=== PATIENT | male | born 1955 | race Caucasian/White ===

== ENCOUNTER 2017-07-05 12:44 | Outpatient (CLI) | payer BC, OTHER ==
--- NOTE | 2017-07-05 13:37 | RAD ---
FRONTAL AND LATERAL IMAGING OF CHEST: 07/05/2017 HISTORY: Dyspnea. COMPARISON: 09/01/2015 FINDINGS: The bilateral hemidiaphragms are elevated with shallow inspiration, stable. The heart and mediastina l contours are stable. No lobar consolidation or alveolar edema. IMPRESSION: Shallow inspiration with elevated bilateral hemidiaphragms, unchanged. No acute findings. POS: LUKAS
== END 2017-07-05 12:45 | disposition home or self-care (01) ==
LOC: RAD 12:44
PROVIDERS: ATTEND Internal Medicine Pulmonary Disease
DX: R06.00 Dyspnea, unspecified (principal); J98.6 Disorders of diaphragm
CPT/HCPCS: 71046

== ENCOUNTER 2018-05-30 09:57 | Outpatient (CLI) | payer OTHER ==
--- NOTE | 2018-05-30 11:05 | RAD ---
CHEST PA AND LATERAL: History: 62-year-old male R09.89, bronchi. Not feeling well. Cough. Congestion, and fever for the past week. FINDINGS: Inspiration is somewhat less than optimal. There is some alveolar parenchymal changes in the superior segment of the right lower lobe, evidence for pneumonia. Heart size is normal. No significant pleura l effusion. There is some elevation of both hemidiaphragms. IMPRESSION: Evidence for superior segment right lower lobe pneumonia. Treatment and follow up to complete clearin g over several weeks is suggested. POS: LUKAS
== END 2018-05-30 09:58 | disposition home or self-care (01) ==
LOC: SCSRAD 09:57
PROVIDERS: ATTEND Nurse Practitioner Family
DX: R09.89 Other specified symptoms and signs involving the circulatory and respiratory systems (principal); J18.9 Pneumonia, unspecified organism
CPT/HCPCS: 71046

== ENCOUNTER 2018-06-14 09:24 | Outpatient (CLI) | payer OTHER ==
--- NOTE | 2018-06-14 11:03 | RAD ---
CHEST PA AND LATERAL: HISTORY: Right-sided pneumonia. COMPARISON: 05/30/2018 FINDINGS: The heart size is normal. There has been interval resolution of the right-sided pneumonia since the previous study. No focal areas of consolidation, pneumothoraces, or pleural effusions are seen. IMPRESSION: No acute process. POS: OFF
== END 2018-06-14 09:25 | disposition home or self-care (01) ==
LOC: SCSRAD 09:24
PROVIDERS: ATTEND Nurse Practitioner Family
DX: J18.1 Lobar pneumonia, unspecified organism (principal)
CPT/HCPCS: 71046

== ENCOUNTER 2018-10-03 12:55 | Outpatient (CLI) | payer OTHER ==
--- NOTE | 2018-10-03 13:19 | RAD ---
Exam: Chest 2 views HISTORY: Dyspnea Comparison 07/05/2017, 06/14/2018 FINDINGS: Normal cardiac silhouette. Pulmonary vessels and hilum are normal. Costophrenic angles are clear. Diminished lung volumes, likely due to a poor inspiratory effort. Lung volumes unchanged. No pneumothorax or osseous abnormalities. IMPRESSION: No acute cardiopulmonary process. No significant change
== END 2018-10-03 12:56 | disposition home or self-care (01) ==
LOC: RAD 12:55
PROVIDERS: ATTEND Internal Medicine Pulmonary Disease
DX: R06.00 Dyspnea, unspecified (principal)
CPT/HCPCS: 71046

== ENCOUNTER 2022-07-20 08:37 | Outpatient (CLI) | payer BC | END 2022-07-20 08:38 | disposition home or self-care (01) | LOC: NM 08:37 | PROVIDERS: ATTEND Psychiatry & Neurology Neurology | DX: R25.9 Unspecified abnormal involuntary movements (principal) | CPT/HCPCS: 78803; A9584 ==

== ENCOUNTER 2023-01-19 12:44 | Outpatient (CLI) | payer OTHER | END 2023-01-19 12:45 | disposition home or self-care (01) | LOC: BICMRI 12:44 | PROVIDERS: ATTEND Surgery | DX: M50.30 Other cervical disc degeneration, unspecified cervical region (principal); M48.02 Spinal stenosis, cervical region; M47.812 Spondylosis without myelopathy or radiculopathy, cervical region; M47.814 Spondylosis without myelopathy or radiculopathy, thoracic region | CPT/HCPCS: 72125; 72146 ==

== ENCOUNTER → 2023-02-18 | Day surgery (SDC) | payer BC ==
[2023-02-18 11:50] LABS: CSF Source CSF; Clarity Clear (Clear); Tube # 4
[2023-02-18 12:16] LABS: CSF, Glucose 74 mg/dl (40-70); CSF, Protein 41 mg/dL (15-40)
== END ==
LOC: RAD 08:14
PROVIDERS: ATTEND Surgery
PROC: 00JU0ZZ Inspection of Spinal Canal, Open Approach (ICD-10-PCS; principal; 2023-02-18)
DX: G93.89 Other specified disorders of brain (principal); R26.89 Other abnormalities of gait and mobility; R26.9 Unspecified abnormalities of gait and mobility
CPT/HCPCS: 62270; 82945; 84157; 87070; 87205; 89051

== ENCOUNTER 2023-04-14 10:19 | Outpatient (CLI) | payer BC ==
[2023-04-14 12:15] LABS: Hematocrit 46.7 % (38.8-50.0); Hemoglobin 15.2 g/dL (13.5-17.5); Mean Corpuscular HGB CONC 32.5 g/dL (32.0-36.0); Mean Corpuscular Hemoglobin 30.6 pg (27.0-33.0); Mean Platelet Volume 10.5 fl (7.4-10.4); Platelet Count 263 10x3/uL (150-450); RBC Distribution Width 13.7 % (11.5-14.5); Red Blood Cell (RBC) Count 4.97 10x6/uL (4.32-5.72); White Blood Cell (WBC) Count 7.4 10x3/uL (3.5-10.5)
[2023-04-14 12:33] LABS: PTT 29.6 sec (22.0-33.0); Prothrombin Time 10.7 sec (9.5-12.1)
[2023-04-14 12:34] LABS: Anion Gap 15 mmol/L (10-20); BUN (Urea Nitrogen) 13 mg/dL (8.4-25.7); Calc. Creatinine Clearance 0 mL/min (70-130); Calcium 9.6 mg/dL (7.8-10.44); Carbon Dioxide 25 mmol/L (23-31); Chloride 105 mmol/L (98-107); Estimated GFR 81; Glucose 103 mg/dL (80-115); Potassium 4.9 mmol/L (3.5-5.1); Sodium 140 mmol/L (136-145)
== END 2023-04-14 10:20 | disposition home or self-care (01) ==
LOC: LABBT 10:19
PROVIDERS: ATTEND Surgery
DX: Z01.818 Encounter for other preprocedural examination (principal); G91.2 (Idiopathic) normal pressure hydrocephalus
CPT/HCPCS: 80048; 85027; 85610; 85730; 93005; 93010

== ENCOUNTER 2023-04-14 11:00 | Inpatient (IN) | payer BC ==
[2023-04-19] MEDS ORDERED: EPINEPHrine 1 MG/ML VIAL ONE (06:32)
[2023-04-19] MEDS ORDERED: Vancomycin HCl 500 MG VIAL ONE (06:33)
[2023-04-19] MEDS ORDERED: Bupivacaine 0.25% HCL 30 ML VIAL ONE (06:35)
[2023-04-19] MEDS ORDERED: Lidocaine 1% (PF) 30 ML VIAL ONE (07:01)
[2023-04-19] MEDS ORDERED: fentaNYL PF 100 MCG/2 ML SYRINGE ONE (07:11)
[2023-04-19] MEDS ORDERED: Sodium Chloride 0.9% 100 ML ONE (07:29)
[2023-04-19] MEDS ORDERED: CEFAZOLIN 2 GM VIAL ONE (07:29)
[2023-04-19] MEDS ORDERED: Dexamethasone 20 MG/5 ML VIAL ONE (07:48)
[2023-04-19] MEDS ORDERED: Albuterol HFA (OR) 200 PUFF INH ONE (07:48)
[2023-04-19] MEDS ORDERED: PROPOFOL 200 MG/20 ML VIAL ONE (07:48)
[2023-04-19] MEDS ORDERED: Rocuronium Bromide 10 MG/ML (10ML VIAL) ONE (07:48)
[2023-04-19] MEDS ORDERED: Esmolol 100 MG/10 ML VIAL ONE (07:48)
[2023-04-19] MEDS ORDERED: Lidocaine 1% PF 5 ML VIAL ONE (07:48)
[2023-04-19] MEDS ORDERED: NEOSTIGMINE 3 MG/3 ML SYR 3 MG/3 ML SYRINGE ONE (07:48)
[2023-04-19] MEDS ORDERED: Ondansetron PF 4 MG/2 ML Vial ONE (07:48)
[2023-04-19] MEDS ORDERED: Glycopyrrolate 0.2 MG/ML 5 ML SYRINGE ONE (07:48)
[2023-04-19] MEDS ORDERED: hydrALAZINE 20 MG/ML VIAL SLOW IVP PRN (09:37)
[2023-04-19] MEDS ORDERED: diphenhydrAMINE 50 MG CAP PO PRN (09:37)
[2023-04-19] MEDS ORDERED: Morphine 2 MG/ML VIAL SLOW IVP PRN (09:37)
[2023-04-19] MEDS ORDERED: Ondansetron PF 4 MG/2 ML Vial IVP PRN (09:37)
[2023-04-19] MEDS ORDERED: Acetaminophen 325 MG TAB PO PRN (09:37)
[2023-04-19] MEDS ORDERED: Zolpidem Tartrate 5 MG TAB PO PRN (09:43)
[2023-04-19] MEDS ORDERED: fentaNYL 50 mcg/mL 1 mL Vial ONE (09:58)
[2023-04-19] MEDS: Sodium Chloride 0.9% 1,000 ML IV SCH (11:30)
[2023-04-19] MEDS: CEFAZOLIN 2 GM in Sodium Chloride 0.9% 100 ML IVPB SCH ×2 (13:17→20:01)
[2023-04-19] MEDS: Acetaminophen/Codeine 30-300mg Tablet PO PRN ×2 (13:38→20:00)
[2023-04-19] MEDS: Ipratropium Bromide 2.5 ml Neb NEB SCH ×3 (13:40→23:06)
[2023-04-19] MEDS: ALPRAZolam 0.25 MG TAB PO PRN ×2 (15:27→20:00)
[2023-04-19] MEDS: HYDROcodone/Acetaminophen 5/325 mg Tablet PO PRN ×2 (15:29→21:23)
[2023-04-19] MEDS: Mometasone 200 MCG/Formoterol 5 MCG 120 PUFF INHALER INH SCH (18:35)
[2023-04-19] MEDS ORDERED: Non-Formulary Item 1 EACH (Budesonide/Formoterol Fumarate [Budesonide-Formoterol 160-4.5] IH SCH (21:00)
[2023-04-20] MEDS: Sodium Chloride 0.9% 1,000 ML IV SCH
[2023-04-20 04:18] VITALS: BMI 32.0
[2023-04-20] MEDS: Acetaminophen/Codeine 30-300mg Tablet PO PRN (05:00)
[2023-04-20] MEDS: CEFAZOLIN 2 GM in Sodium Chloride 0.9% 100 ML IVPB SCH (05:00)
[2023-04-20] MEDS: Ipratropium Bromide 2.5 ml Neb NEB SCH (07:02)
[2023-04-20 07:03] LABS: #Eosinphils 0.1 thou/uL (0.0-0.7); #Monocytes 1.6 thou/uL (0.11-0.59); #Neutrophils 9.9 thou/uL (1.40-6.50); %Basophils 0.2 % (0.0-1.0); %Eosinophils 0.5 % (0.0-10.0); %Monocytes 11.2 % (0.0-10.0); %Neutrophils 70.5 % (42.0-75.0); Hematocrit 44.2 % (42.0-52.0); Hemoglobin 14.4 g/dL (14.0-18.0); Mean Corpuscular HGB CONC 32.6 g/dL (32.0-36.0); Mean Corpuscular Hemoglobin 30.8 pg (27.0-31.0); Mean Corpuscular Volume 94.4 fl (78.0-98.0); Platelet Count 278 10x3/uL (130-400); RBC Distribution Width 13.5 % (11.5-14.5); Red Blood Cell (RBC) Count 4.68 mill/uL (4.70-6.10); White Blood Cell (WBC) Count 14.1 10x3/uL (4.8-10.8)
[2023-04-20] MEDS: Mometasone 200 MCG/Formoterol 5 MCG 120 PUFF INHALER INH SCH (07:05)
[2023-04-20 08:02] LABS: Anion Gap 16 mmol/L (10-20); BUN (Urea Nitrogen) 14 mg/dL (8.4-25.7); Calc. Creatinine Clearance 102 mL/min (70-130); Calcium 9.4 mg/dL (7.8-10.44); Carbon Dioxide 23 mmol/L (23-31); Chloride 101 mmol/L (98-107); Estimated GFR 72; Glucose 130 mg/dL (80-115); Potassium 3.7 mmol/L (3.5-5.1); Sodium 136 mmol/L (136-145)
[2023-04-20] MEDS ORDERED: Losartan 25 MG TAB PO SCH (09:00)
[2023-04-20] MEDS ORDERED: Non-Formulary Item 1 EACH (Umeclidinium Bromide [Incruse Ellipta] 62.5 MCG Blst.W.Dev) IH SCH (09:00)
[2023-04-20] MEDS ORDERED: Non-Formulary Item 1 EACH (Losartan [Cozaar] 50 MG Tab) PO SCH (09:00)
[2023-04-20] MEDS: HYDROcodone/Acetaminophen 5/325 mg Tablet PO PRN (10:02)
[2023-04-20 12:13] VITALS: TEMP 97.9
[2023-04-20 13:35] VITALS: BP 134/70
== END 2023-04-20 13:30 | disposition home or self-care (01) | DRG 33 ==
LOC: SURG A 04-19 06:11 → CCU 04-19 10:40
PROVIDERS: ADMIT Surgery; ATTEND Surgery
PROC: 00163J6 Bypass Cerebral Ventricle to Peritoneal Cavity with Synthetic Substitute, Percutaneous Approach (ICD-10-PCS; principal; 2023-04-19)
PROC: 0WJG4ZZ Inspection of Peritoneal Cavity, Percutaneous Endoscopic Approach (ICD-10-PCS; 2023-04-19)
DX: G91.2 (Idiopathic) normal pressure hydrocephalus (principal)
CPT/HCPCS: 36415; 70450; 80048; 85025; 94640; J0171; J1100; J2001; J2405; J2704; J3010; J3370; J3490; J7050; S0020

== ENCOUNTER 2023-04-23 09:39 | Emergency (ER) | payer BC ==
[2023-04-23] MEDS ORDERED: Ondansetron PF 4 MG/2 ML Vial ONE (10:34)
[2023-04-23] MEDS ORDERED: Metoclopramide HCl 10 MG/2 ML VIAL ONE (10:34)
[2023-04-23] MEDS ORDERED: diphenhydrAMINE 50 MG/ML VIAL ONE (10:34)
[2023-04-23 10:43] LABS: #Basophils 0.1 thou/uL (0.0-0.2); #Eosinphils 0.4 thou/uL (0.0-0.7); #Monocytes 0.9 thou/uL (0.11-0.59); #Neutrophils 4.8 thou/uL (1.40-6.50); %Basophils 0.9 % (0.0-1.0); %Eosinophils 4.9 % (0.0-10.0); %Lymphocytes 27.9 % (21.0-51.0); %Monocytes 9.9 % (0.0-10.0); %Neutrophils 55.7 % (42.0-75.0); Hematocrit 42.3 % (42.0-52.0); Mean Corpuscular HGB CONC 33.1 g/dL (32.0-36.0); Mean Corpuscular Hemoglobin 30.8 pg (27.0-31.0); Mean Platelet Volume 9.6 fL (7.4-10.4); Platelet Count 279 10x3/uL (130-400); RBC Distribution Width 12.9 % (11.5-14.5); Red Blood Cell (RBC) Count 4.55 mill/uL (4.70-6.10); White Blood Cell (WBC) Count 8.6 10x3/uL (4.8-10.8)
[2023-04-23 10:59] LABS: ALT (SGPT) 23 U/L (8-55); AST (SGOT) 19 U/L (5-34); Albumin 4.1 g/dL (3.4-4.8); Alkaline Phosphatase 74 U/L (40-110); Anion Gap 15 mmol/L (10-20); BUN (Urea Nitrogen) 8 mg/dL (8.4-25.7); Bilirubin, Total 0.6 mg/dL (0.2-1.2); Calc. Creatinine Clearance 0 mL/min (70-130); Calcium 8.9 mg/dL (7.8-10.44); Carbon Dioxide 23 mmol/L (23-31); Chloride 102 mmol/L (98-107); Estimated GFR 95; Globulin 2.7 g/dL (2.4-3.5); Glucose 112 mg/dL (80-115); Potassium 3.9 mmol/L (3.5-5.1); Protein, Total 6.8 g/dL (5.8-8.1); Sodium 136 mmol/L (136-145)
[2023-04-23 13:12] LABS: SARS-CoV-2 NAA Rapid Test Not Detected (NotDetected)
== END 2023-04-23 13:33 | disposition home or self-care (01) ==
LOC: ERS 09:39
DX: R51.9 Headache, unspecified (principal); J44.9 Chronic obstructive pulmonary disease, unspecified; Z20.822 Contact with and (suspected) exposure to COVID-19
CPT/HCPCS: 70450; 80053; 85025; 96374; 96375; J1200; J2405; J2765

== ENCOUNTER 2023-05-11 12:48 | Outpatient (CLI) | payer BC | END 2023-05-11 12:49 | disposition home or self-care (01) | LOC: CT 12:48 | PROVIDERS: ATTEND Surgery | DX: G91.9 Hydrocephalus, unspecified (principal); Z98.2 Presence of cerebrospinal fluid drainage device | CPT/HCPCS: 70450 ==